=== PATIENT | male | born 1960 | race Two or more races ===

== ENCOUNTER 2020-11-27 05:30 | Day surgery (SDC) | payer OTHER | END 2020-11-27 09:51 | disposition home or self-care (01) | LOC: AMB-ENDOS 05:30 | PROVIDERS: ATTEND Surgery | DX: K63.5 Polyp of colon (principal); Z20.822 Contact with and (suspected) exposure to COVID-19; Z12.11 Encounter for screening for malignant neoplasm of colon ==